=== PATIENT | female | born 1945 | race Caucasian/White ===

== ENCOUNTER 2017-03-10 09:06 | Emergency (ER) | payer OTHER ==
[~2017-03-10] VITALS: Ht 165.1 cm; Wt 81.6 kg
[2017-03-10 10:09] LABS: BASOPHIL % 0.3 % (0-2); PLATELET COUNT 204 x10^3mcL (130-400)
[2017-03-10 10:19] LABS: RED CELL DISTRIBUTION WIDTH 15.6 % (11.5-14.5)
[2017-03-10 10:33] LABS: T3 TOTAL 1.15 ng/mL
[2017-03-10 10:40] LABS: CALCIUM 10.7 mg/dL (8.5-10.1); CARBON DIOXIDE 27.8 mmol/L (21-32); CHLORIDE SERUM 113 mmol/L (98-107); CREATININE SERUM 1.4 mg/dL (0.6-1.0); GLUCOSE SERUM 61 mg/dL (74-106); POTASSIUM SERUM 4.3 mmol/L (3.5-5.1); SODIUM SERUM 150 mmol/L (136-145)
[2017-03-10 10:44] LABS: ALBUMIN 3.6 g/dL (3.4-5.0); ALKALINE PHOSPHATASE 71 U/L (46-116); ALT/SGPT 26 U/L (14-59); AST/SGOT 19 U/L (15-37); BILIRUBIN TOTAL 0.72 mg/dL (0.20-1.00); HDL CHOLESTEROL 55 mg/dL (40-60); LIPASE 96 IU/L (73-393); TOTAL PROTEIN, SERUM 7.3 g/dL (6.4-8.2); TRIGLYCERIDES 110 mg/dL (<150)
[2017-03-10 10:46] LABS: CHOLESTEROL 115 mg/dL (<200); CHOLESTEROL/HDL RATIO 2.1
[2017-03-10 10:55] LABS: FREE T4 1.17 ng/dL (0.76-1.46); FREE THYROXINE INDEX 3.1 ug/dL (1.4-4.5); T4(THYROXINE) 8.5 ug/dL (4.7-13.3)
[2017-03-10 11:21] LABS: UA SPECIFIC GRAVITY 1.015 (1.005-1.035); microscopic required? YES; urine erythrocyte TRACE (NEGATIVE)
[2017-03-10 13:32] LABS: microscopic required? YES; urine erythrocyte 1+ (NEGATIVE)
[2017-03-10 13:43] VITALS: BP 140/76
== END 2017-03-10 13:43 | disposition home or self-care (01) ==
LOC: ED 09:06
PROVIDERS: Specialist
DX: T38.3X1A Poisoning by insulin and oral hypoglycemic [antidiabetic] drugs, accidental (unintentional), initial encounter (principal); N39.0 Urinary tract infection, site not specified; Y92.89 Other specified places as the place of occurrence of the external cause; E10.9 Type 1 diabetes mellitus without complications; I10 Essential (primary) hypertension; E78.00 Pure hypercholesterolemia, unspecified; E78.5 Hyperlipidemia, unspecified; E66.9 Obesity, unspecified
CPT/HCPCS: 82962; 83880; 84439; J7030; Q0092

== ENCOUNTER 2017-09-09 12:59 | Emergency (ER) | payer OTHER ==
[~2017-09-09] VITALS: Ht 165.1 cm; Wt 81.6 kg
[2017-09-09 14:45] VITALS: BP 140/99
== END 2017-09-09 17:05 | disposition home or self-care (01) ==
LOC: ED 12:59
DX: S70.02XA Contusion of left hip, initial encounter (principal); S70.01XA Contusion of right hip, initial encounter; W19.XXXA Unspecified fall, initial encounter; Z79.899 Other long term (current) drug therapy; Z79.4 Long term (current) use of insulin; Z79.84 Long term (current) use of oral hypoglycemic drugs; E11.9 Type 2 diabetes mellitus without complications; I10 Essential (primary) hypertension; Y93.89 Activity, other specified; Y92.89 Other specified places as the place of occurrence of the external cause; Y99.8 Other external cause status
CPT/HCPCS: Q0092

== ENCOUNTER 2017-09-26 14:33 | Inpatient (IN) | payer OTHER ==
[~2017-09-26] VITALS: Ht 165.1 cm; Wt 107.8 kg
[2017-09-26 15:18] LABS: BASOPHIL % 0.3 % (0-2); PLATELET COUNT 268 x10^3mcL (130-400)
[2017-09-26 15:21] LABS: CALCIUM 10.1 mg/dL (8.5-10.1); CARBON DIOXIDE 27.1 mmol/L (21-32); CHLORIDE SERUM 109 mmol/L (98-107); CREATININE SERUM 1.5 mg/dL (0.6-1.0); GLUCOSE SERUM 207 mg/dL (74-106); POTASSIUM SERUM 4.7 mmol/L (3.5-5.1); SODIUM SERUM 140 mmol/L (136-145)
[2017-09-26] MEDS ORDERED: LASIX20 MG PO (15:23)
[2017-09-26] MEDS ORDERED: NATURE'S BLEND F1 MG PO (15:23)
[2017-09-26 15:24] LABS: RED CELL DISTRIBUTION WIDTH 16.7 % (11.5-14.5)
[2017-09-26] MEDS ORDERED: DITROPAN XL10 MG PO (15:24)
[2017-09-26] MEDS ORDERED: SIMVASTATIN20 M1 PO (15:24)
[2017-09-26] MEDS ORDERED: HYDRALAZINE HCL25 MG PO (15:24)
[2017-09-26] MEDS ORDERED: LOSARTAN POTAS100 M1 PO (15:24)
[2017-09-26 15:25] LABS: ALKALINE PHOSPHATASE 134 U/L (46-116); ALT/SGPT 25 U/L (14-59); AST/SGOT 20 U/L (15-37); BILIRUBIN TOTAL 0.61 mg/dL (0.20-1.00); TOTAL PROTEIN, SERUM 7.2 g/dL (6.4-8.2)
[2017-09-26] MEDS ORDERED: ALENDRONATE SOD70 M2 PO (15:25)
[2017-09-26] MEDS ORDERED: COREG25 M1 PO (15:25)
[2017-09-26] MEDS ORDERED: LANTUS SOLOS100 U/M1 (15:25)
[2017-09-26 15:26] LABS: ALBUMIN 2.8 g/dL (3.4-5.0)
[2017-09-26] MEDS ORDERED: ASPIR 8181 MG PO (15:26)
[2017-09-26] MEDS ORDERED: NORCO1 TA2 PO (15:26)
[2017-09-26 16:53] VITALS: BP 121/51
[2017-09-26 17:10] VITALS: Ht 165.1 cm; Wt 107.8 kg
[2017-09-26 18:05] LABS: CHOLESTEROL/HDL RATIO 1.9; MAGNESIUM 2.2 mg/dL (1.8-2.4); PHOSPHOROUS 2.4 mg/dL (2.5-4.9)
[2017-09-26 18:12] LABS: T3 TOTAL 0.88 ng/mL
[2017-09-26 18:13] LABS: FREE T4 1.47 ng/dL (0.76-1.46); FREE THYROXINE INDEX 3.5 ug/dL (1.4-4.5); T4(THYROXINE) 9.3 ug/dL (4.7-13.3)
[2017-09-26 20:49] VITALS: BP 123/54
[2017-09-26 20:57] VITALS: BP 123/54; BP 126/69
[2017-09-27 05:08] VITALS: BP 128/56
[2017-09-27 06:14] LABS: BASOPHIL % 0.2 % (0-2); PLATELET COUNT 253 x10^3mcL (130-400)
[2017-09-27 06:19] LABS: CALCIUM 9.4 mg/dL (8.5-10.1); CARBON DIOXIDE 24.3 mmol/L (21-32); CHLORIDE SERUM 112 mmol/L (98-107); CREATININE SERUM 1.5 mg/dL (0.6-1.0); GLUCOSE SERUM 105 mg/dL (74-106); PHOSPHOROUS 2.3 mg/dL (2.5-4.9); POTASSIUM SERUM 4.6 mmol/L (3.5-5.1); SODIUM SERUM 143 mmol/L (136-145)
[2017-09-27 06:45] LABS: RED CELL DISTRIBUTION WIDTH 16.6 % (11.5-14.5)
[2017-09-27 10:06] VITALS: BP 129/52
[2017-09-27 13:05] VITALS: BP 138/59
[2017-09-27 13:45] VITALS: BP 151/67
[2017-09-27 17:12] VITALS: BP 149/66
[2017-09-27 20:32] VITALS: BP 127/59
[2017-09-28 05:18] VITALS: BP 102/69
[2017-09-28 06:41] LABS: BASOPHIL % 0.1 % (0-2); PLATELET COUNT 244 x10^3mcL (130-400)
[2017-09-28 07:03] LABS: CALCIUM 9.5 mg/dL (8.5-10.1); CARBON DIOXIDE 24.2 mmol/L (21-32); CHLORIDE SERUM 112 mmol/L (98-107); CREATININE SERUM 1.4 mg/dL (0.6-1.0); GLUCOSE SERUM 196 mg/dL (74-106); PHOSPHOROUS 2.8 mg/dL (2.5-4.9); RED CELL DISTRIBUTION WIDTH 16.7 % (11.5-14.5); SODIUM SERUM 141 mmol/L (136-145)
[2017-09-28 07:53] LABS: microscopic required? NO
[2017-09-28 08:03] LABS: urine erythrocyte NEGATIVE (NEGATIVE)
[2017-09-28 09:23] VITALS: BP 130/47
[2017-09-28 11:46] LABS: AMPHETAMINE QUAL UR NONE DETECTED (NEG <=1000)
[2017-09-28 17:28] VITALS: BP 104/84
[2017-09-28 20:57] VITALS: BP 103/50
[2017-09-29 05:18] VITALS: BP 132/58
[2017-09-29 06:39] LABS: BASOPHIL % 0.5 % (0-2); PLATELET COUNT 256 x10^3mcL (130-400)
[2017-09-29 06:42] LABS: CARBON DIOXIDE 23.7 mmol/L (21-32); CHLORIDE SERUM 114 mmol/L (98-107); CREATININE SERUM 1.4 mg/dL (0.6-1.0); GLUCOSE SERUM 187 mg/dL (74-106); SODIUM SERUM 142 mmol/L (136-145)
[2017-09-29 07:01] LABS: RED CELL DISTRIBUTION WIDTH 17.3 % (11.5-14.5)
[2017-09-29 09:00] VITALS: BP 140/64
[2017-09-29] MEDS ORDERED: FLE10 PO (17:42)
[2017-09-29] MEDS ORDERED: LEVAQUIN750 MG PO (17:44)
[2017-09-29 18:01] VITALS: BP 139/64
[2017-09-29 20:02] VITALS: BP 150/63
[2017-09-29 20:03] VITALS: BP 150/80
[2017-09-29 20:39] VITALS: BP 150/63
== END 2017-09-29 23:06 | DRG 602 ==
LOC: ED 14:33 → DU 15:48 → MU 09-28 11:28
PROVIDERS: Emergency Medicine; Family Medicine; ADMIT Family Medicine
DX: L03.115 Cellulitis of right lower limb (principal); N17.0 Acute kidney failure with tubular necrosis; D68.69 Other thrombophilia; L97.811 Non-pressure chronic ulcer of other part of right lower leg limited to breakdown of skin; L97.821 Non-pressure chronic ulcer of other part of left lower leg limited to breakdown of skin; E11.51 Type 2 diabetes mellitus with diabetic peripheral angiopathy without gangrene; E11.65 Type 2 diabetes mellitus with hyperglycemia; B35.1 Tinea unguium; E78.5 Hyperlipidemia, unspecified; M81.0 Age-related osteoporosis without current pathological fracture; D64.9 Anemia, unspecified; N32.81 Overactive bladder; I83.018 Varicose veins of right lower extremity with ulcer other part of lower leg; I83.028 Varicose veins of left lower extremity with ulcer other part of lower leg; M47.896 Other spondylosis, lumbar region; Z79.82 Long term (current) use of aspirin; E66.01 Morbid (severe) obesity due to excess calories; Z68.39 Body mass index [BMI] 39.0-39.9, adult; Z79.4 Long term (current) use of insulin; Z99.3 Dependence on wheelchair; Z95.0 Presence of cardiac pacemaker
CPT/HCPCS: 82962; 83880; 84439; 97110-GP; 97530-GP; J0295; J0690; J0713; J1815; J1885; J2270; J3010; J3490; J7030; J7512; Q0092

== ENCOUNTER 2018-03-11 08:22 | Inpatient (IN) | payer OTHER ==
[~2018-03-11] VITALS: Ht 165.1 cm; Wt 103.1 kg
[~2018-03-11 08:22] MED LIST: ALENDRONATE SOD70 M2 PO; ASPIR 8181 MG PO; COREG25 M1 PO; DITROPAN XL10 MG PO; FLE10 PO; HYDRALAZINE HCL25 MG PO; LANTUS SOLOS100 U/M1 SC; LASIX20 MG PO; LEVAQUIN750 MG PO; LOSARTAN POTAS100 M1 PO; NATURE'S BLEND F1 MG PO; NORCO1 TA2 PO; SIMVASTATIN20 M1 PO
[2018-03-11] MEDS ORDERED: HUMULIN N100 U/1 ML SC (10:04)
[2018-03-11] MEDS ORDERED: VITAMIN-D1000 IU PO (10:04)
[2018-03-11] MEDS ORDERED: MULTIVITAMIN1 SGL PO (10:05)
[2018-03-11 10:12] LABS: BASOPHIL % 0.4 % (0-2); PLATELET COUNT 249 x10^3mcL (130-400)
[2018-03-11 10:13] LABS: RED CELL DISTRIBUTION WIDTH 14.9 % (11.5-14.5)
[2018-03-11 10:28] LABS: CALCIUM 10.1 mg/dL (8.5-10.1); CARBON DIOXIDE 27.7 mmol/L (21-32); CHLORIDE SERUM 109 mmol/L (98-107); CREATININE SERUM 1.2 mg/dL (0.6-1.0); GLUCOSE SERUM 65 mg/dL (74-106); POTASSIUM SERUM 4.3 mmol/L (3.5-5.1); SODIUM SERUM 143 mmol/L (136-145)
[2018-03-11 10:33] LABS: ALKALINE PHOSPHATASE 98 U/L (46-116); ALT/SGPT 20 U/L (14-59); AST/SGOT 16 U/L (15-37); BILIRUBIN TOTAL 0.9 mg/dL (0.20-1.00); TOTAL PROTEIN, SERUM 6.9 g/dL (6.4-8.2)
[2018-03-11 10:34] LABS: ALBUMIN 2.9 g/dL (3.4-5.0)
[2018-03-11 12:07] LABS: PHOSPHOROUS 2.9 mg/dL (2.5-4.9)
[2018-03-11 12:14] LABS: T3 TOTAL 0.89 ng/mL
[2018-03-11 12:15] LABS: CHOLESTEROL/HDL RATIO 1.8
[2018-03-11 12:28] LABS: UA SPECIFIC GRAVITY 1.015 (1.005-1.035); microscopic required? YES; urine erythrocyte 2+ (NEGATIVE)
[2018-03-11] MEDS ORDERED: JANUVIA100 M1 PO (12:56)
[2018-03-11 12:59] LABS: FREE T4 1.66 ng/dL (0.76-1.46); FREE THYROXINE INDEX 3.5 ug/dL (1.4-4.5); T4(THYROXINE) 9.5 ug/dL (4.7-13.3)
[2018-03-11] MEDS ORDERED: LASIX20 MG PO (13:04)
[2018-03-11 13:58] VITALS: BP 135/57
[2018-03-11 18:26] VITALS: BP 121/61
[2018-03-11 19:40] VITALS: BP 110/46
[2018-03-12 06:01] VITALS: BP 104/53
[2018-03-12 07:34] LABS: CALCIUM 9.2 mg/dL (8.5-10.1); CARBON DIOXIDE 24.3 mmol/L (21-32); CHLORIDE SERUM 109 mmol/L (98-107); CREATININE SERUM 1.6 mg/dL (0.6-1.0); GLUCOSE SERUM 94 mg/dL (74-106); MAGNESIUM 1.9 mg/dL (1.8-2.4); PHOSPHOROUS 3.8 mg/dL (2.5-4.9); POTASSIUM SERUM 4.4 mmol/L (3.5-5.1); SODIUM SERUM 139 mmol/L (136-145)
[2018-03-12 07:50] LABS: BASOPHIL % 0.1 % (0-2); PLATELET COUNT 223 x10^3mcL (130-400)
[2018-03-12 07:51] LABS: RED CELL DISTRIBUTION WIDTH 15.5 % (11.5-14.5)
[2018-03-12 09:19] VITALS: BP 112/43
[2018-03-12 13:11] VITALS: BP 109/53
[2018-03-12 14:55] VITALS: Ht 165.1 cm; Wt 103.1 kg
[2018-03-12 18:19] VITALS: BP 90/49
[2018-03-12 21:46] VITALS: BP 91/50
[2018-03-13 05:56] VITALS: BP 124/59
[2018-03-13 06:48] LABS: BASOPHIL % 0.1 % (0-2); PLATELET COUNT 213 x10^3mcL (130-400)
[2018-03-13 06:49] LABS: RED CELL DISTRIBUTION WIDTH 15.2 % (11.5-14.5)
[2018-03-13 06:52] LABS: CALCIUM 9.3 mg/dL (8.5-10.1); CHLORIDE SERUM 109 mmol/L (98-107); CREATININE SERUM 1.9 mg/dL (0.6-1.0); GLUCOSE SERUM 135 mg/dL (74-106); MAGNESIUM 2.1 mg/dL (1.8-2.4); PHOSPHOROUS 4.1 mg/dL (2.5-4.9); POTASSIUM SERUM 5.2 mmol/L (3.5-5.1); SODIUM SERUM 139 mmol/L (136-145)
[2018-03-13 09:32] VITALS: BP 127/59
[2018-03-13] MEDS ORDERED: LASIX20 MG PO (10:44)
[2018-03-13] MEDS ORDERED: CLEOCIN HCL150 MG PO (10:50)
[2018-03-13] MEDS ORDERED: CEPHALEXIN250 MG PO (10:50)
[2018-03-13] MEDS ORDERED: LAC PO (10:51)
[2018-03-13] MEDS ORDERED: TRE400 PO (10:52)
[2018-03-13] MEDS ORDERED: ZINC SULFATE220 MG PO (10:53)
[2018-03-13] MEDS ORDERED: BACO TOP (11:03)
[2018-03-13] MEDS ORDERED: HIBICLENS118 ML TOP (11:03)
[2018-03-13 12:10] VITALS: BP 138/67
[2018-03-13 13:15] VITALS: BP 138/67
[2018-03-13] MEDS ORDERED: NOVAPLUS ZOSYN50 M1 IV (14:02)
[2018-03-13 17:31] VITALS: BP 115/55
== END 2018-03-13 19:44 | DRG 637 ==
LOC: ED 08:22 → DU 11:07
PROVIDERS: Emergency Medicine; Family Medicine
DX: E11.622 Type 2 diabetes mellitus with other skin ulcer (principal); I50.43 Acute on chronic combined systolic (congestive) and diastolic (congestive) heart failure; L03.116 Cellulitis of left lower limb; L97.821 Non-pressure chronic ulcer of other part of left lower leg limited to breakdown of skin; L97.811 Non-pressure chronic ulcer of other part of right lower leg limited to breakdown of skin; E44.0 Moderate protein-calorie malnutrition; N39.0 Urinary tract infection, site not specified; B96.20 Unspecified Escherichia coli [E. coli] as the cause of diseases classified elsewhere; B35.3 Tinea pedis; M21.612 Bunion of left foot; M21.611 Bunion of right foot; B35.1 Tinea unguium; E11.65 Type 2 diabetes mellitus with hyperglycemia; N17.0 Acute kidney failure with tubular necrosis; I25.10 Atherosclerotic heart disease of native coronary artery without angina pectoris; I11.0 Hypertensive heart disease with heart failure; I07.1 Rheumatic tricuspid insufficiency; N39.3 Stress incontinence (female) (male); E11.51 Type 2 diabetes mellitus with diabetic peripheral angiopathy without gangrene; D64.9 Anemia, unspecified; M81.0 Age-related osteoporosis without current pathological fracture; I25.2 Old myocardial infarction; E66.01 Morbid (severe) obesity due to excess calories; Z68.37 Body mass index [BMI] 37.0-37.9, adult; Z95.810 Presence of automatic (implantable) cardiac defibrillator; Z96.651 Presence of right artificial knee joint; Z79.891 Long term (current) use of opiate analgesic; Z79.82 Long term (current) use of aspirin; Z79.4 Long term (current) use of insulin; Z22.322 Carrier or suspected carrier of Methicillin resistant Staphylococcus aureus; Z16.24 Resistance to multiple antibiotics
CPT/HCPCS: 82962; 83880; 84439; 94150; 97110-GP; 97530-GP; J0696; J1200; J1450; J1644; J1815; J1885; J1940; J2270; J2405; J2543; J3490; J7030; J7050; Q0092; Q9966; Q9967